=== PATIENT | female | born 1935 | race Caucasian/White ===

== ENCOUNTER 2019-02-25 13:48 | Emergency (ER) | payer MEDICARE ==
[2019-02-25 13:57] VITALS: BP 127/78
--- NOTE | 2019-02-25 15:07 | ER Document Report ---
ED Medical Screen (RME) - General Chief Complaint: Problem with Urinary Catheter Stated Complaint: CATHETER PROBLEMS Time Seen by Provider: 02/25/19 14:54 Notes: 84-year-old female presents the emergency department with chief complaint of suprapubic catheter malfunction. Patient states that she is incontinent and still passes urine through her urethra but states that her catheter is not working. - Related Data Allergies/Adverse Reactions: No Known Allergies Allergy (Verified 02/25/19 14:50) Physical Exam - Vital signs Vitals: Temp Pulse Resp BP Pulse Ox 97.7 F 78 16 127/78 H 78 L 02/25/19 13:56 02/25/19 13:56 02/25/19 13:56 02/25/19 13:56 02/25/19 13:56 Course - Vital Signs Vital signs: Temp Pulse Resp BP Pulse Ox 97.7 F 78 16 127/78 H 78 L 02/25/19 13:56 02/25/19 13:56 02/25/19 13:56 02/25/19 13:56 02/25/19 13:56
--- NOTE | 2019-02-25 15:51 | ER Document Report ---
ED General - General Chief Complaint: Problem with Urinary Catheter Stated Complaint: CATHETER PROBLEMS Time Seen by Provider: 02/25/19 14:54 Notes: 84-year-old female with neurogenic bladder and permanent suprapubic tube placed in [place] presents with clogged tube and decreased urine output. Since mornings when she changed her back to only about 250 cc of output. Been drinking plenty of fluids. Feels slight supra pubic pressure the same as when her catheter is been clogged in the past. No fever no belly pain no back pain. No cloudy urine. Slight urine leakage from urethra which is abnormal and only happens when her catheter is clogged. - Related Data Allergies/Adverse Reactions: No Known Allergies Allergy (Verified 02/25/19 14:50) Past Medical History - Social History Smoking Status: Never Smoker Family History: None Patient has suicidal ideation: No Patient has homicidal ideation: No Review of Systems - Review of Systems Notes: REVIEW OF SYSTEMS GEN: Denies fever, chills, weight loss ENT: Denies sore throat, nasal discharge, ear pain EYES: Denies blurry vision, eye pain, discharge CV: Denies chest pain, palpitations, edema RESP: Denies cough, shortness of breath, wheezing GI: Denies abdominal pain, nausea, vomiting, diarrhea MSK: Denies joint pain/swelling, edema, SKIN: Denies rash, skin lesions LYMPH: Denies swollen glands/lymph nodes NEURO: Denies headache, focal weakness or numbness, dizziness PSYCH: Denies depression, suicidal or homicidal ideation PHYSICAL EXAMINATION General: No acute distress, well-nourished Head: Atraumatic, normocephalic ENT: Mouth normal, oropharynx moist, no exudates or tonsillar enlargement Eyes: Conjunctiva normal, pupils equal, lids normal Neck: No JVD, supple, no guarding CVS: Normal rate, regular rhythm, no murmurs Resp: No resp distress, equal and normal breath sounds bilaterally GI: Nondistended, soft, no tenderness to palpation, no rebound or guarding. Suprapubic catheter in place with clear urine in bag. Ext: No deformities, no edema, normal range of motion in upper and lower ext Back: No CVA or midline TTP Skin: No rash, warm Lymphatic: No lymphadeopathy noted Neuro: Awake, alert. Face symmetric. GCS 15. Physical Exam - Vital signs Vitals: Temp Pulse Resp BP Pulse Ox 97.7 F 78 16 127/78 H 78 L 02/25/19 13:56 02/25/19 13:56 02/25/19 13:56 02/25/19 13:56 02/25/19 13:56 Course - Re-evaluation Re-evalutation: 02/25/19 23:54 With urinary incontinence from the urethra which is not normal for her in the setting of blocked catheter. Probably over distention. Catheter was removed and replaced, urine flow. No superpubic pressure was felt after the procedure. No fever no CVA tenderness urine is clear and given her indwelling catheter status would not over treat with antibiotics given the situation. She will be discharged to follow-up with your urologist. I have discussed with the patient there likely diagnosis, aftercare plan, follow-up plans and my usual and customary return precautions. They verbalized understanding of this. - Vital Signs Vital signs: Temp Pulse Resp BP Pulse Ox 97.7 F 78 16 127/78 H 78 L 02/25/19 13:56 02/25/19 13:56 02/25/19 13:56 02/25/19 13:56 02/25/19 13:56 Procedures - Additional Procedures Gastric tube replacement Additional Procedures: Other - Suprapubic catheter placement by physician. Consent: Verbal Procedure: ChloraPrep placed ureteral catheter removed. Using sterile technique a 20 [place] Brantley catheter was inserted to the bladder, urine was free-flowing. Discharge - Discharge Clinical Impression: Obstructed suprapubic catheter Qualifiers: Encounter type: initial encounter Qualified Code(s): T83.090A - Other mechanical complication of cystostomy catheter, initial encounter Condition: Good Disposition: HOME, SELF-CARE Instructions: [facility] Catheter [facility] ([facility]) Additional Instructions: follwi with your urologist 5 DAYS
== END 2019-02-25 16:57 | disposition home or self-care (01) ==
LOC: ER 13:48
DX: T83.090A Other mechanical complication of cystostomy catheter, initial encounter (principal); Y83.3 Surgical operation with formation of external stoma as the cause of abnormal reaction of the patient, or of later complication, without mention of misadventure at the time of the procedure; N31.9 Neuromuscular dysfunction of bladder, unspecified; N39.498 Other specified urinary incontinence
CPT/HCPCS: 99283; 51702; C1758 ×2